=== PATIENT | female | born 1985 | race Two or more races ===

== ENCOUNTER 2022-02-08 01:53 | Emergency (ER) | payer MEDICAID ==
[~2022-02-08] VITALS: Ht 160 cm; Wt 68.0 kg
[2022-02-08 06:00] VITALS: BP 122/63
== END 2022-02-08 06:16 | disposition home or self-care (01) ==
LOC: EDBD 01:53 → ER 01:59
DX: F10.129 Alcohol abuse with intoxication, unspecified (principal); R41.82 Altered mental status, unspecified; Y90.8 Blood alcohol level of 240 mg/100 ml or more

== ENCOUNTER 2022-03-22 02:18 | Emergency (ER) | payer MEDICAID ==
[~2022-03-22] VITALS: Ht 165.1 cm; Wt 68.0 kg
[2022-03-22 02:34] VITALS: BP 117/89
[2022-03-22] MEDS ORDERED: SODIUM CHLORIDE 0.9% 1,000 ML IVB ONE (03:15)
[2022-03-22 03:55] LABS: Basophils # (auto) 0.1 10 ^3/uL (0-0.2); Basophils % (auto) 0.9 % (0.0-2.0); Eosinophils # (auto) 0 10 ^3/uL (0-0.8); Hematocrit 35.3 % (36.0-46.0); Hemoglobin 11.9 g/dL (12.2-16.2); Lymphocytes # (auto) 1.6 10 ^3/uL (0.4-5.4); Lymphocytes % (auto) 12.4 % (10.0-50.0); Mean Corpuscular Hemoglobin 32.8 pg (28.0-32.0); Mean Corpuscular Hgb Conc. 33.7 g/dL (32.0-36.0); Mean Corpuscular Volume 97.4 fL (80.0-100.0); Monocytes # (auto) 1.3 10 ^3/uL (0-1.3); Neutrophils # (auto) 9.8 10 ^3/uL (1.6-8.6); Neutrophils % (auto) 76.7 % (37.0-80.0); Red Blood Cells 3.63 10^6/uL (4.0-5.20); Red Cell Distribution Width 17.6 % (11.8-14.3); White Blood Cell 12.7 10^3/uL (4.4-10.8)
[2022-03-22] MEDS ORDERED: THIAMINE 100mg/ml INJ (200mg/2ml VIAL) IV ONE (04:00)
[2022-03-22 04:12] LABS: Albumin 4.2 g/dL (3.4-5.0)
[2022-03-22 04:19] LABS: Salicylate < 1.7 mg/dL (2.8-20.0)
[2022-03-22 04:20] LABS: Acetaminophen < 2.0 ug/mL (10-30)
[2022-03-22 04:21] LABS: Bilirubin, Total 1.5 mg/dL (0.2-1.0); Total Protein 8.4 g/dL (6.4-8.2)
[2022-03-22 04:22] LABS: Potassium 2.8 mmol/L (3.5-5.1)
[2022-03-22] MEDS ORDERED: POTASSIUM EFFERVESENT TAB 25 MEQ PO ONE (04:30)
== END 2022-03-22 06:02 | disposition home or self-care (01) ==
LOC: EDBD 02:18 → ER 02:26
DX: F10.129 Alcohol abuse with intoxication, unspecified (principal); F41.9 Anxiety disorder, unspecified; E87.6 Hypokalemia; Y90.0 Blood alcohol level of less than 20 mg/100 ml
CPT/HCPCS: 36415; 71045; 80053; 80320; 80329; 85025; 96361; 96374; 99284; J3411; J7030